=== PATIENT | female | born 1995 | race American Indian/Alaskan Native ===

== ENCOUNTER 2019-07-21 18:33 | Emergency (ER) | payer MEDICAID ==
[2019-07-21] MEDS ORDERED: Cephalexin 500 MG Cap PO ONE (18:34)
--- NOTE | 2019-07-21 23:10 | ER ---
DATE SEEN: 07/21/2019 CHIEF COMPLAINT: Pressure, pelvic. HISTORY OF PRESENT ILLNESS: A 24-year-old female who had a positive test at home. She complains of pelvic pressure, frequency of urination, and dysuria; symptoms lasting 24 hours. Denies any bleeding, neither does she have any pelvic pain as such. ALLERGIES: None. REVIEW OF SYSTEMS: No nausea, vomiting, or constipation. PHYSICAL EXAMINATION: GENERAL: She is febrile, pleasant. VITAL SIGNS: Normal. ABDOMEN: Soft and benign. LABORATORY DATA: Showed urine of white cell count 30 and rbc 10 with positive test. IMPRESSION: Urinary tract infection in early . PLAN: Cephalexin 500 mg p.o. t.i.d. for 5 days. I advised her to see her PCP to establish obstetric care. /[id number] ALDO/MISSY
== END 2019-07-21 20:04 | disposition home or self-care (01) ==
LOC: FB.ED 18:33
DX: O23.41 Unspecified infection of urinary tract in pregnancy, first trimester (principal)
CPT/HCPCS: 81001; 81025; 87086; 87088; 87186; 99284; A9270-GY

== ENCOUNTER 2019-08-05 22:28 | Emergency (ER) | payer MEDICAID ==
--- NOTE | 2019-08-05 23:53 | EDM.PDOC ---
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 History: Hematologic History: Reports: Anemia Dermatologic History: Reports: Eczema - Infectious Disease History Infectious Disease History: Reports: Chicken Pox - Past Surgical History Head Surgeries/Procedures: Reports: None Social & Family History - Family History Family Medical History: Noncontributory - Caffeine Use Caffeine Use: Reports: Coffee, Soda ED ROS GENERAL - Review of Systems Review Of Systems: See Below Constitutional: Reports: No Symptoms HEENT: Reports: No Symptoms Respiratory: Reports: No Symptoms Cardiovascular: Reports: No Symptoms Endocrine: Reports: No Symptoms GI/Abdominal: Reports: No Symptoms : Reports: No Symptoms Musculoskeletal: Reports: No Symptoms Skin: Reports: No Symptoms Neurological: Reports: No Symptoms Psychiatric: Reports: No Symptoms ED EXAM - Physical Exam Exam: See Below Exam Limited By: No Limitations General Appearance: Alert, No Apparent Distress Ears: Normal External Exam Nose: Normal Inspection Throat/Mouth: Normal Inspection Head: Atraumatic Neck: Normal Inspection Respiratory/Chest: No Respiratory Distress, Lungs Clear, Normal Breath Sounds Cardiovascular: Normal Peripheral Pulses, Regular Rate, Rhythm, No Edema, No Gallop GI/Abdominal Exam: Normal Bowel Sounds, Soft, Non-Tender Extremities: Normal Inspection, Normal Range of Motion, Non-Tender Course - Vital Signs Text/Narrative:: labs reviewed and discussed with patient and verbalized full understanding - Orders/Labs/Meds Labs: Laboratory Tests 08/05/19 08/05/19 Range/Units 22:40 22:40 Hgb 12.4 (11.5-15.5) g/dL HCG, Quant 08134 (<5) mIU/mL Departure - Departure Time of Disposition: 23:30 Disposition: Home, Self-Care 01 Condition: Good Clinical Impression: Vaginal bleeding before 22 weeks gestation - Discharge Information Instructions: Vaginal Bleeding During , First Trimester Referrals: PCP,None [Primary Care Provider] - Forms: ED Department Discharge Additional Instructions: Please read discharge instructions on vaginal bleeding Your HCG level is normal, follow up with your doctor on Thursday to recheck the HCG level No unprotected sexual intercourse x 1 month You can take tylenol 1000 mg every 8 hours as needed for pain Sepsis Event Note - Focused Exam Date Exam was Performed: 08/06/19 Time Exam was Performed: 01:13
== END 2019-08-06 | disposition home or self-care (01) ==
LOC: FB.ED 22:28
DX: O20.9 Hemorrhage in early pregnancy, unspecified (principal); Z3A.10 10 weeks gestation of pregnancy
CPT/HCPCS: 36415; 84702; 85018; 99284

== ENCOUNTER 2020-02-28 14:53 | Emergency (ER) | payer MEDICAID ==
[2020-02-28] MEDS ORDERED: Sodium Chloride 0.9% 1,000 ML IV SCH (15:15)
--- NOTE | 2020-02-28 15:50 | EDM.PDOC ---
ED HPI GENERAL MEDICAL PROBLEM - General Chief Complaint: General Stated Complaint: BLURRY VISION Time Seen by Provider: 02/28/20 15:00 Source of Information: Reports: Patient History Limitations: Reports: No Limitations - History of Present Illness INITIAL COMMENTS - FREE TEXT/NARRATIVE: Patient presented to the ED because of brief episode of blurry vision while standing and doing laundry. She also c/o nausea but no vomiting. There is no fever,cough/cold symptoms. She is at approximately 5 weeks AOG. 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: Psychiatric History: Reports: Anxiety Hematologic History: Reports: Anemia Dermatologic History: Reports: Eczema - Infectious Disease History Infectious Disease History: Reports: Chicken Pox - Past Surgical History Head Surgeries/Procedures: Reports: None Social & Family History - Family History Family Medical History: Noncontributory - Tobacco Use Tobacco Use Status *Q: Never Tobacco User - Caffeine Use Caffeine Use: Reports: Coffee, Soda ED ROS GENERAL - Review of Systems Review Of Systems: See Below Constitutional: Reports: No Symptoms HEENT: Reports: No Symptoms Respiratory: Reports: No Symptoms Cardiovascular: Reports: No Symptoms Endocrine: Reports: No Symptoms GI/Abdominal: Reports: Nausea. Denies: Vomiting : Reports: No Symptoms Musculoskeletal: Reports: No Symptoms Skin: Reports: No Symptoms Neurological: Reports: No Symptoms ED EXAM, GENERAL - Physical Exam Exam: See Below Exam Limited By: No Limitations General Appearance: No Apparent Distress Ears: Normal External Exam, Normal Canal Nose: Normal Inspection, Normal Mucosa Throat/Mouth: Normal Inspection, Normal Lips, Normal Teeth Head: Atraumatic, Normocephalic Neck: Normal Inspection, Supple, Non-Tender, Full Range of Motion Respiratory/Chest: No Respiratory Distress, Lungs Clear, Normal Breath Sounds Cardiovascular: Normal Peripheral Pulses, Regular Rate, Rhythm, No Edema, No Gallop GI/Abdominal: Normal Bowel Sounds, Non-Tender, No Organomegaly Back Exam: Normal Inspection, Full Range of Motion Course - Vital Signs Text/Narrative:: Lab results reviewed and discussed with patient NS 1 L bolus Zofran 4 mg IV x1 Last Recorded V/S: Last Vital Signs Temp 36.1 C 02/28/20 14:53 Pulse 73 02/28/20 14:53 Resp 16 02/28/20 14:53 BP 103/76 02/28/20 14:53 Pulse Ox 100 02/28/20 14:53 - Orders/Labs/Meds Orders: Active Orders 24 hr Category Date Time Status CULTURE URINE [RM] Stat Lab 02/28/20 15:38 Received Sodium Chloride 0.9% [Normal Saline] 1,000 ml Med 02/28/20 15:15 Active IV ASDIRECTED Medication Orders Sodium Chloride (Normal Saline) 1,000 mls @ 999 mls/hr IV ASDIRECTED ENEDELIA Last Admin: 02/28/20 15:45 Dose: 999 mls/hr Documented by: JENI Labs: Laboratory Tests 02/28/20 02/28/20 02/28/20 Range/Units 15:17 15:17 15:38 WBC 9.6 (4.5-12.0) X10-3/uL RBC 4.37 (3.23-5.20) x10(6)uL Hgb 12.2 (11.5-15.5) g/dL Hct 35.8 (30.0-51.3) % MCV 82.0 (80-96) fL MCH 27.9 (27.7-33.6) pg MCHC 34.0 (32.2-35.4) g/dL RDW 11.3 L (11.5-15.5) % Plt Count 220 (125-369) X10(3)uL MPV 7.9 (7.4-10.4) fL Neut % (Auto) 73.8 (46-82) % Lymph % (Auto) 19.7 (13-37) % Davis % (Auto) 4.1 (4-12) % Eos % (Auto) 2 (1.0-5.0) % Baso % (Auto) 0 (0-2) % Neut # (Auto) 7.1 (1.6-8.3) # Lymph # (Auto) 1.9 (0.6-5.0) # Davis # (Auto) 0.4 (0.0-1.3) # Eos # (Auto) 0.2 (0.0-0.8) # Baso # (Auto) 0.0 (0.0-0.2) # Sodium 138 (135-145) mmol/L Potassium 3.5 (3.5-5.3) mmol/L Chloride 102 (100-110) mmol/L Carbon Dioxide 26 (21-32) mmol/L BUN 7 (7-18) mg/dL Creatinine 0.6 (0.55-1.02) mg/dL Est Cr Clr Drug Dosing 158.40 mL/min Estimated GFR (MDRD) > 60 (>60) BUN/Creatinine Ratio 11.7 (9-20) Glucose 90 (80-116) mg/dL Calcium 9.1 (8.6-10.2) mg/dL Urine Color Yellow (YELLOW) Urine Appearance Cloudy (CLEAR) Urine pH 7.0 H (5.0-6.5) Ur Specific [place] 1.005 L (1.010-1.025) Urine Protein Negative (NEGATIVE) mg/dL Urine Glucose (UA) Normal (NORMAL) mg/dL Urine Ketones Negative (NEGATIVE) mg/dL Urine Occult Blood Moderate H (NEGATIVE) Urine Nitrite Positive H (NEGATIVE) Urine Bilirubin Negative (NEGATIVE) Urine Urobilinogen Normal (NEGATIVE) mg/dL Ur Leukocyte Esterase Large H (NEGATIVE) Urine RBC 5-10 H (0-5) Urine WBC 40-50 H (0-5) Ur Squamous Epith Cells Moderate H (NS,R,O) Urine Bacteria Many H (NS) Meds: Medications Generic Name Dose Route Start Last Admin Trade Name Freq PRN Reason Stop Dose Admin Sodium Chloride 1,000 mls @ 999 mls/hr 02/28/20 15:15 02/28/20 15:45 Normal Saline IV 999 mls/hr ASDIRECTED ENEDELIA Administration Discontinued Medications Generic Name Dose Route Start Last Admin Trade Name Freq PRN Reason Stop Dose Admin Ondansetron HCl 4 mg 02/28/20 15:52 02/28/20 15:56 Zofran IVPUSH 02/28/20 15:53 4 mg ONETIME ONE Administration Departure - Departure Time of Disposition: 16:30 Disposition: Home, Self-Care 01 Condition: Good Clinical Impression: Dehydration, UTI (urinary tract infection) - Discharge Information Prescriptions: Nitrofurantoin Monohyd/M-Cryst [Macrobid 100 mg Capsule] 100 mg PO BID #10 capsule Ondansetron [Zofran ODT] 4 mg PO Q4H PRN #10 tab.dis PRN Reason: Nausea Instructions: Dehydration, Adult, [id number], and Urinary Tract Infection Referrals: PCP,None [Primary Care Provider] - Forms: ED Department Discharge Additional Instructions: Please read discharge instructions on Dehydration and UTI Increase oral fluids, drink at least 2-3 liters of water a day Zofran ODT 4 mg every 4 hours as needed for nausea Follow up with an OB doctor for your vitamins Sepsis Event Note (ED) - Evaluation Sepsis Screening Result: No Definite Risk - Focused Exam Vital Signs: Vital Signs Temp Pulse Resp BP Pulse Ox 02/28/20 14:53 36.1 C 73 16 103/76 100 - My Orders Last 24 Hours: My Active Orders 02/28/20 15:15 Sodium Chloride 0.9% [Normal Saline] 1,000 ml IV ASDIRECTED 02/28/20 15:38 CULTURE URINE [RM] Stat - Assessment/Plan Last 24 Hours: My Active Orders 02/28/20 15:15 Sodium Chloride 0.9% [Normal Saline] 1,000 ml IV ASDIRECTED 02/28/20 15:38 CULTURE URINE [RM] Stat
[2020-02-28] MEDS ORDERED: Ondansetron 4 MG/2 ML SDV IVPUSH ONE (15:52)
== END 2020-02-28 16:39 | disposition home or self-care (01) ==
LOC: FB.ED 14:53
DX: E86.0 Dehydration (principal); N39.0 Urinary tract infection, site not specified; R11.0 Nausea
CPT/HCPCS: 36415; 80048; 81001; 85025; 87086; 87088; 87186; 96374; 99284; J2405; J7030

== ENCOUNTER 2020-05-27 00:15 | Emergency (ER) | payer MEDICAID ==
[2020-05-27] MEDS ORDERED: LORazepam 2 MG/ML SDV IM STA (00:44)
--- NOTE | 2020-05-27 00:51 | EDM.PDOC ---
ED HPI GENERAL MEDICAL PROBLEM - General Chief Complaint: General Stated Complaint: "FEELS LIKE I WANT TO BITE MY TONGUE" Time Seen by Provider: 05/27/20 00:30 Source of Information: Reports: Patient History Limitations: Reports: No Limitations - History of Present Illness INITIAL COMMENTS - FREE TEXT/NARRATIVE: Patient presented to the ED because she felt like she is swallowing her tongue backwards. She also c/o dyspnea although her oxygen saturation was normal upon triage. She thinks she have anxiety but never been diagnosed. 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: Psychiatric History: Reports: Anxiety Hematologic History: Reports: Anemia Dermatologic History: Reports: Eczema - Infectious Disease History Infectious Disease History: Reports: Chicken Pox - Past Surgical History Head Surgeries/Procedures: Reports: None Social & Family History - Family History Family Medical History: No Pertinent Family History - Caffeine Use Caffeine Use: Reports: Coffee, Soda ED ROS GENERAL - Review of Systems Review Of Systems: See Below Constitutional: Reports: No Symptoms HEENT: Reports: No Symptoms Respiratory: Reports: Shortness of Breath Cardiovascular: Reports: No Symptoms Endocrine: Reports: No Symptoms GI/Abdominal: Reports: No Symptoms : Reports: No Symptoms Musculoskeletal: Reports: No Symptoms Skin: Reports: No Symptoms ED EXAM, GENERAL - Physical Exam Exam: See Below Exam Limited By: No Limitations General Appearance: Alert Ears: Normal External Exam Nose: Normal Inspection, Normal Mucosa Throat/Mouth: Normal Inspection Head: Atraumatic, Normocephalic Neck: Normal Inspection, Supple, Non-Tender, Full Range of Motion Respiratory/Chest: No Respiratory Distress, Lungs Clear, Normal Breath Sounds, No Accessory Muscle Use, Chest Non-Tender Cardiovascular: Normal Peripheral Pulses, Regular Rate, Rhythm, No Edema, No Gallop GI/Abdominal: Normal Bowel Sounds, Soft, Non-Tender, No Organomegaly, No Distention Back Exam: Normal Inspection, Full Range of Motion Extremities: Normal Inspection, Normal Range of Motion, Non-Tender Neurological: Alert, Oriented, CN II-XII Intact Psychiatric: Normal Affect, Anxious Skin Exam: Warm Course - Vital Signs Text/Narrative:: Ativan 1 mg IM x1 - Orders/Labs/Meds Meds: Medications Discontinued Medications Generic Name Dose Route Start Last Admin Trade Name Js PRN Reason Stop Dose Admin Lorazepam 1 mg 05/27/20 00:44 05/27/20 00:54 Ativan IM 05/27/20 00:45 1 mg NOW STA Administration Departure - Departure Time of Disposition: 01:30 Disposition: Home, Self-Care 01 Condition: Good Clinical Impression: Anxiety - Discharge Information Instructions: Managing Anxiety, Adult Referrals: PCP,None [Primary Care Provider] - Forms: ED Department Discharge Additional Instructions: Please read discharge instructions on anxiety Follow up with your doctor if your anxiety attack is becoming more frequent
== END 2020-05-27 01:40 | disposition home or self-care (01) ==
LOC: FB.ED 00:15
DX: F41.9 Anxiety disorder, unspecified (principal)
CPT/HCPCS: 96372; 99283; J2060

== ENCOUNTER 2020-07-03 06:17 | Emergency (ER) | payer MEDICAID ==
[2020-07-03] MEDS ORDERED: Acetaminophen Soln 650 MG/20.3 ML UD Cup PO ONE (07:15)
--- NOTE | 2020-07-03 16:27 | EDM.PDOC ---
ED HPI GENERAL MEDICAL PROBLEM - General Stated Complaint: R flower back pain Time Seen by Provider: 07/03/20 06:30 Source of Information: Reports: Patient History Limitations: Reports: No Limitations - History of Present Illness INITIAL COMMENTS - FREE TEXT/NARRATIVE: Ev is a at approximately 21 wks AOG presented to the ED because rt lower back pain. The pain is dull ache and worse with movements. there is no associated fever,chills, nausea,vomiting. 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 States she is at this time--05-27-20. Psychiatric History: Reports: Anxiety Hematologic History: Reports: Anemia Dermatologic History: Reports: Eczema - Infectious Disease History Infectious Disease History: Reports: Chicken Pox - Past Surgical History Head Surgeries/Procedures: Reports: None Social & Family History - Family History Family Medical History: No Pertinent Family History - Caffeine Use Caffeine Use: Reports: Coffee, Soda ED ROS GENERAL - Review of Systems Review Of Systems: See Below Constitutional: Reports: No Symptoms HEENT: Reports: No Symptoms Respiratory: Reports: No Symptoms Cardiovascular: Reports: No Symptoms Endocrine: Reports: No Symptoms GI/Abdominal: Reports: No Symptoms : Reports: No Symptoms Musculoskeletal: Reports: Back Pain Skin: Reports: No Symptoms Neurological: Reports: No Symptoms Psychiatric: Reports: No Symptoms ED EXAM, GENERAL - Physical Exam Exam: See Below Exam Limited By: No Limitations General Appearance: Alert, No Apparent Distress Ears: Normal External Exam, Normal Canal, Hearing Grossly Normal Nose: Normal Inspection, Normal Mucosa Throat/Mouth: Normal Inspection, Normal Lips, Normal Teeth, Normal Gums Head: Atraumatic, Normocephalic Neck: Normal Inspection, Supple, Non-Tender, Full Range of Motion Respiratory/Chest: No Respiratory Distress, Lungs Clear, Normal Breath Sounds Cardiovascular: Normal Peripheral Pulses, Regular Rate, Rhythm, No Edema GI/Abdominal: Normal Bowel Sounds, Soft, Non-Tender, No Organomegaly, No Distention, No Abnormal Bruit, No Mass Back Exam: Normal Inspection, Full Range of Motion Extremities: Normal Inspection, Normal Range of Motion, Non-Tender Neurological: Alert, Oriented, CN II-XII Intact Psychiatric: Normal Affect Skin Exam: Warm Course - Vital Signs Text/Narrative:: Tylenol 650 mg liquid po x1 Macrobid 1 po x1 - Orders/Labs/Meds Orders: Active Orders 24 hr Category Date Time Status CULTURE URINE [RM] Routine Lab 07/03/20 06:30 Received Labs: Laboratory Tests 07/03/20 Range/Units 06:30 Urine Color Yellow (YELLOW) Urine Appearance Clear (CLEAR) Urine pH 7.0 H (5.0-6.5) Ur Specific [place] 1.005 L (1.010-1.025) Urine Protein Negative (NEGATIVE) mg/dL Urine Glucose (UA) Normal (NORMAL) mg/dL Urine Ketones Negative (NEGATIVE) mg/dL Urine Occult Blood Negative (NEGATIVE) Urine Nitrite Negative (NEGATIVE) Urine Bilirubin Negative (NEGATIVE) Urine Urobilinogen Normal (NEGATIVE) mg/dL Ur Leukocyte Esterase Large H (NEGATIVE) Urine RBC 0-5 (0-5) Urine WBC 10-20 H (0-5) Ur Squamous Epith Cells Few H (NS,R,O) Urine Bacteria Few H (NS) Departure - Departure Time of Disposition: 07:15 Disposition: Home, Self-Care 01 Condition: Good Clinical Impression: UTI (urinary tract infection) - Discharge Information Referrals: PCP,None [Primary Care Provider] - Additional Instructions: please read discharge instructions on uti increase oral fluids macrobid 1 tablet twice daily for 5 days follow up as needed - My Orders Last 24 Hours: My Active Orders 07/03/20 06:30 CULTURE URINE [RM] Routine - Assessment/Plan Last 24 Hours: My Active Orders 07/03/20 06:30 CULTURE URINE [RM] Routine
== END 2020-07-03 07:20 | disposition home or self-care (01) ==
LOC: FB.ED 06:17
DX: O23.42 Unspecified infection of urinary tract in pregnancy, second trimester (principal); Z3A.21 21 weeks gestation of pregnancy
CPT/HCPCS: 81001; 87086; 87088; 87186; 99283; A9270-GY

== ENCOUNTER 2020-07-05 02:37 | Emergency (ER) | payer MEDICAID ==
--- NOTE | 2020-07-05 03:25 | EDM.PDOC ---
ED HPI GENERAL MEDICAL PROBLEM - General Stated Complaint: BACK PAIN Time Seen by Provider: 07/05/20 02:40 Source of Information: Reports: Patient History Limitations: Reports: No Limitations - History of Present Illness INITIAL COMMENTS - FREE TEXT/NARRATIVE: Patient presented to the ED because of low back pain. She is approximately 21 weeks AOG and was diagnosed with UTI 2 days ago but she is not taking her medicines as prescribed. She said she can't swallow a pill. There is no associated fever, chills but she had 1 episode of nausea and vomiting. back pain Pain Score (Numeric/FACES): 6 - Related Data Allergies Allergy/AdvReac Type Severity Reaction Status Date / Time No Known Allergies Allergy Verified 07/05/20 03:02 Home Meds: Home Meds Vit #76/Iron,Carb/Fa [Prenatabs Rx] 1 tab DAILY 07/21/19 [History] Hydrocodone/Acetaminophen [Hydrocodone-Acetamin 10-325/15] 7.5 ml PO Q4H PRN #120 solution 07/05/20 [Rx] Nitrofurantoin Monohyd/M-Cryst [Macrobid 100 mg Capsule] 100 mg PO BID #10 capsule 07/05/20 [Rx] Ondansetron [Zofran ODT] 4 mg PO Q4H PRN #7 tab.dis 07/05/20 [Rx] Sulfamethoxazole/Trimethoprim [Bactrim Ds Tablet] 1 each PO BID #10 tablet 07/05/20 [Rx] nitrofurantoin macrocrystaL [Nitrofurantoin] 100 mg PO BID 07/05/20 [History] Past Medical History HEENT History: Reports: None 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 States she is at this time--05-27-20. Psychiatric History: Reports: Anxiety Hematologic History: Reports: Anemia Dermatologic History: Reports: Eczema - Infectious Disease History Infectious Disease History: Reports: Chicken Pox - Past Surgical History Head Surgeries/Procedures: Reports: None Social & Family History - Family History Family Medical History: No Pertinent Family History - Caffeine Use Caffeine Use: Reports: Coffee, Soda ED ROS GENERAL - Review of Systems Review Of Systems: See Below Constitutional: Reports: No Symptoms HEENT: Reports: No Symptoms Respiratory: Reports: No Symptoms Cardiovascular: Reports: No Symptoms Endocrine: Reports: No Symptoms GI/Abdominal: Reports: Nausea, Vomiting : Reports: No Symptoms Musculoskeletal: Reports: Back Pain Skin: Reports: No Symptoms ED EXAM, RENAL/ - Physical Exam Exam: See Below Exam Limited By: No Limitations General Appearance: Alert, No Apparent Distress Ears: Normal External Exam, Normal Canal, Hearing Grossly Normal Nose: Normal Inspection, Normal Mucosa, No Blood Throat/Mouth: Normal Inspection, Normal Lips, Normal Teeth, Normal Gums Head: Atraumatic, Normocephalic Neck: Normal Inspection, Supple, Non-Tender, Full Range of Motion Respiratory/Chest: No Respiratory Distress, Lungs Clear, Normal Breath Sounds, No Accessory Muscle Use, Chest Non-Tender Cardiovascular: Normal Peripheral Pulses, Regular Rate, Rhythm, No Edema, No Gallop, No JVD, No Murmur, No Rub GI/Abdominal: Normal Bowel Sounds, Other Back Exam: Normal Inspection, Full Range of Motion Extremities: Normal Inspection, Normal Range of Motion, Non-Tender, No Pedal Edema, Normal Capillary Refill Neurological: Alert, Oriented, CN II-XII Intact, Normal Cognition Psychiatric: Normal Affect, Normal Mood Course - Vital Signs Text/Narrative:: Hydrocodone liquid 15 ml po x1 Zofran ODT 4 mg PO x1 Last Recorded V/S: Last Vital Signs Temp 38.2 C H 07/05/20 02:40 Pulse 127 H 07/05/20 02:40 Resp 18 07/05/20 02:40 BP 96/50 L 07/05/20 02:40 Pulse Ox 99 07/05/20 02:40 - Orders/Labs/Meds Meds: Medications Discontinued Medications Generic Name Dose Route Start Last Admin Trade Name Js PRN Reason Stop Dose Admin Hydrocodone Bitart/Acetaminophen 15 ml 07/05/20 03:33 07/05/20 03:44 Acetaminophen/Hydrocodone 108-2.5 Mg/5 Ml Soln 15 Ml Ud Cup PO 07/05/20 03:34 15 ml NOW STA Administration Ondansetron HCl 4 mg 07/05/20 03:28 07/05/20 03:43 Ondansetron 4 Mg Tab.Dis PO 07/05/20 03:29 4 mg NOW STA Administration Departure - Departure Time of Disposition: 03:30 Disposition: Home, Self-Care 01 Condition: Good Clinical Impression: UTI (urinary tract infection) - Discharge Information Prescriptions: Sulfamethoxazole/Trimethoprim [Bactrim Ds Tablet] 1 each PO BID #10 tablet Hydrocodone/Acetaminophen [Hydrocodone-Acetamin 10-325/15] 7.5 ml PO Q4H PRN #120 solution PRN Reason: Pain Nitrofurantoin Monohyd/M-Cryst [Macrobid 100 mg Capsule] 100 mg PO BID #10 capsule Ondansetron [Zofran ODT] 4 mg PO Q4H PRN #7 tab.dis PRN Reason: Nausea Instructions: Urinary Tract Infection, Adult, [id number] Referrals: PCP,None [Primary Care Provider] - Forms: ED Department Discharge Additional Instructions: Please read discharge instructions on UTI Increase oral fluids Zofran ODT 4 mg every 4 hours as needed for nausea Take macrobid 100 mg twice daily (not once daily) for 5 days Bactrim DS twice daily for 5 days Hydrocodone liquid 10mg/325/15 ml, take 7.5 ml every 4-6 hours as needed for pain Keep your appointment to see your OB tomorrow Sepsis Event Note (ED) - Evaluation Sepsis Screening Result: Possible Sepsis Risk - Focused Exam Vital Signs: Vital Signs Temp Pulse Resp BP Pulse Ox 07/05/20 02:40 38.2 C H 127 H 18 96/50 L 99
[2020-07-05] MEDS ORDERED: Ondansetron 4 MG Tab.DIS PO STA (03:28)
[2020-07-05] MEDS ORDERED: Acetaminophen/HYDROcodone 108-2.5 MG/5 ML Soln 15 ML UD Cup PO STA (03:33)
== END 2020-07-05 04:00 | disposition home or self-care (01) ==
LOC: FB.ED 02:37
DX: O23.42 Unspecified infection of urinary tract in pregnancy, second trimester (principal); Z3A.21 21 weeks gestation of pregnancy
CPT/HCPCS: 99283; A9270

== ENCOUNTER 2021-02-23 11:11 | Emergency (ER) | payer MEDICAID ==
--- NOTE | 2021-02-23 12:21 | EDM.PDOC ---
ED HPI GENERAL MEDICAL PROBLEM - General Stated Complaint: L. EAR PAIN Time Seen by Provider: 02/23/21 11:40 Source of Information: Reports: Patient History Limitations: Reports: No Limitations - History of Present Illness INITIAL COMMENTS - FREE TEXT/NARRATIVE: pt c/o congestion fever , joint aches and left ear pressure since 2-3 days, no other associated sx and she is doing well otherwise. her fiance is also here with similar sx. - Related Data Allergies Allergy/AdvReac Type Severity Reaction Status Date / Time No Known Allergies Allergy Verified 02/23/21 11:41 Home Meds: Home Meds Vit #76/Iron,Carb/Fa [Prenatabs Rx] 1 tab DAILY 07/21/19 [History] Hydrocodone/Acetaminophen [Hydrocodone-Acetamin 10-325/15] 7.5 ml PO Q4H PRN #120 solution 07/05/20 [Rx] Nitrofurantoin Monohyd/M-Cryst [Macrobid 100 mg Capsule] 100 mg PO BID #10 capsule 07/05/20 [Rx] Ondansetron [Zofran ODT] 4 mg PO Q4H PRN #7 tab.dis 07/05/20 [Rx] Sulfamethoxazole/Trimethoprim [Bactrim Ds Tablet] 1 each PO BID #10 tablet 07/05/20 [Rx] nitrofurantoin macrocrystaL [Nitrofurantoin] 100 mg PO BID 07/05/20 [History] Past Medical History HEENT History: Reports: None HALL 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 States she is at this time--[birth year]. Psychiatric History: Reports: Anxiety Hematologic History: Reports: Anemia Dermatologic History: Reports: Eczema - Infectious Disease History Infectious Disease History: Reports: Chicken Pox - Past Surgical History Head Surgeries/Procedures: Reports: None Social & Family History - Family History Family Medical History: No Pertinent Family History - Caffeine Use Caffeine Use: Reports: Coffee, Soda ED ROS GENERAL - Review of Systems Review Of Systems: See Below Constitutional: Reports: Fever, Chills, Fatigue HEENT: Reports: Ear Pain, Rhinitis. Denies: Sinus Problem, Throat Pain Respiratory: Reports: No Symptoms Cardiovascular: Reports: No Symptoms Endocrine: Reports: No Symptoms GI/Abdominal: Reports: No Symptoms : Reports: No Symptoms Musculoskeletal: Reports: No Symptoms Skin: Reports: No Symptoms Neurological: Reports: No Symptoms ED EXAM, GENERAL - Physical Exam Exam: See Below Exam Limited By: No Limitations General Appearance: Alert, No Apparent Distress Eye Exam: Bilateral Eye: Normal Inspection Ears: Other (left ear has ruptured TM, right ear has ME effusion no eruthema us pulging or dullness ) Nose: Normal Inspection, Normal Mucosa Throat/Mouth: Normal Inspection, Normal Oropharynx Head: Atraumatic, Normocephalic Neck: Normal Inspection, Supple, Non-Tender Respiratory/Chest: No Respiratory Distress, Lungs Clear, Normal Breath Sounds Cardiovascular: Normal Peripheral Pulses, Regular Rate, Rhythm GI/Abdominal: Normal Bowel Sounds, Soft Extremities: Normal Inspection Neurological: Alert, Oriented, CN II-XII Intact, Normal Reflexes, No Motor /Sensory Deficits Course - Vital Signs Text/Narrative:: pt is covid positive with mild resp and consitiutional sxs, supportive mng was recommended along with antihistamines for left ear effusion , pt to follow with PCP if needed. 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 Last Recorded V/S: Last Vital Signs Temp 38.3 C H 02/23/21 11:11 Pulse 107 H 02/23/21 11:11 Resp 18 02/23/21 11:11 BP 102/64 02/23/21 11:11 Pulse Ox 98 02/23/21 11:11 - Orders/Labs/Meds Labs: Laboratory Tests 02/23/21 Range/Units 11:50 SARS-CoV-2 RNA ([facility]) Positive H (NEGATIVE) Departure - Departure Time of Disposition: 13:34 Disposition: Home, Self-Care 01 Clinical Impression: Viral illness, COVID - Discharge Information Referrals: PCP,None [Primary Care Provider] - Sepsis Event Note (ED) - Focused Exam Vital Signs: Vital Signs Temp Pulse Resp BP Pulse Ox 02/23/21 11:11 38.3 C H 107 H 18 102/64 98
== END 2021-02-23 14:00 | disposition home or self-care (01) ==
LOC: FB.ED 11:11
DX: U07.1 COVID-19 (principal)
CPT/HCPCS: 99283; U0002

== ENCOUNTER 2021-05-12 22:42 | Emergency (ER) | payer MEDICAID ==
[2021-05-12] MEDS ORDERED: Ketorolac 30 MG/ML SDV IM ONE (22:57)
== END 2021-05-12 23:40 | disposition home or self-care (01) ==
LOC: FB.ED 22:42
DX: R51.9 Headache, unspecified (principal); Z86.16 Personal history of COVID-19
CPT/HCPCS: 96372; 99283; J1885

== ENCOUNTER 2022-08-16 21:56 | Emergency (ER) | payer MEDICAID ==
[2022-08-16] MEDS ORDERED: Meclizine 25 MG Tab PO ONE (21:57)
== END 2022-08-16 22:37 | disposition home or self-care (01) ==
LOC: FB.ED 21:56
DX: H81.10 Benign paroxysmal vertigo, unspecified ear (principal); Z86.16 Personal history of COVID-19
CPT/HCPCS: 99283; A9270; 99282

== ENCOUNTER 2022-11-30 16:42 | Emergency (ER) | payer MEDICAID ==
[2022-11-30 17:44] LABS: BILIRUBIN,URINE NEGATIVE (NEGATIVE); GLUCOSE,URINE NORMAL (NORMAL); KETONES,URINE NEGATIVE (NEGATIVE); LEUKOCYTE ESTERASE,URINE LARGE (NEGATIVE); NITRITE,URINE NEGATIVE (NEGATIVE); OCCULT BLOOD,URINE MODERATE (NEGATIVE); PROTEIN,URINE NEGATIVE (NEGATIVE); UROBILINOGEN,URINE NORMAL (NEGATIVE)
[2022-11-30 17:45] LABS: APPEARANCE,URINE CLOUDY (CLEAR); BACTERIA,URINE FEW (NS); COLOR,URINE YELLOW (YELLOW); RBC,URINE 0-5 (0-5); SQUAMOUS EPITHELIAL CELLS,UR OCCASIONAL (NS,R,O); WBC,URINE >100 (0-5)
[2022-11-30] MEDS ORDERED: Ondansetron 4 MG/2 ML SDV IVPUSH ONE (17:57)
[2022-11-30] MEDS ORDERED: Ertapenem 1 GM in Sodium Chloride 0.9% 50 ML IV ONE (17:59)
[2022-11-30] MEDS ORDERED: Sodium Chloride 0.9% 1,000 ML IV ONE (18:00)
[2022-11-30] MEDS ORDERED: Ketorolac 30 MG/ML SDV IVPUSH ONE (18:02)
[2022-11-30 18:15] LABS: BASOPHILS PERCENT AUTO 0.3 % (0.2-1.5); EOSINOPHILS ABSOLUTE AUTO 0.1 x10-3/uL (0.0-0.8); EOSINOPHILS PERCENT AUTO 1.2 % (0.6-8.1); HEMATOCRIT 35.7 % (34.2-48.2); HEMOGLOBIN 11.8 g/dL (11.4-15.5); LYMPHOCYTES ABSOLUTE AUTO 0.9 x10-3/uL (1.0-4.4); LYMPHOCYTES PERCENT AUTO 8.7 % (18.4-52.1); MEAN CORPUSCULAR HEMOGLOBIN 26.3 pg (23.9-33.9); MEAN CORPUSCULAR HGB CONC 33.1 g/dL (31.9-34.8); MEAN CORPUSCULAR VOLUME 79.6 fL (76.7-100.5); MONOCYTES ABSOLUTE AUTO 0.7 x10-3/uL (0.3-1.0); MONOCYTES PERCENT AUTO 7.4 % (4.4-15.7); NEUTROPHILS ABSOLUTE AUTO 8.3 x10-3/uL (1.5-6.3); NEUTROPHILS PERCENT AUTO 82.4 % (30.8-76.2); PLATELET COUNT,PLT 208 x10(3)uL (151-488); RED BLOOD CELL COUNT 4.49 x10(6)uL (3.60-5.20); RED CELL DISTRIBUTION WIDTH 12.7 % (12.3-16.5); WHITE BLOOD CELL COUNT,WBC 10.1 x10-3/uL (3.0-10.3)
[2022-11-30 18:22] LABS: BLOOD UREA NITROGEN,BUN 9 mg/dL (7-18); BUN/CREATININE RATIO 11.3 (9-20); CALCIUM 8.9 mg/dL (8.6-10.2); CARBON DIOXIDE,CO2 28 mmol/L (21-32); CHLORIDE,CL 100 mmol/L (100-110); CREATININE 0.8 mg/dL (0.55-1.02); EST CRCL DRUG DOSING (CG) 107.41 mL/min; ESTIMATED GFR 104 mL/min (>60); GLUCOSE RANDOM 92 mg/dL (80-116); POTASSIUM,K 3.9 mmol/L (3.5-5.3); SODIUM,NA 138 mmol/L (135-145)
[2022-11-30 18:28] LABS: ALANINE AMINOTRANSFERASE,ALT 21 U/L (12-36); ALBUMIN 3.9 g/dL (3.5-5.2); ALKALINE PHOSPHATASE 99 IU/L (56-112); ASPARTATE AMNIOTRANSFERASE,AST 17 IU/L (5-25); BILIRUBIN TOTAL 0.6 mg/dL (0.1-1.3)
== END 2022-11-30 20:11 | disposition home or self-care (01) ==
LOC: FB.ED 16:42
DX: N12 Tubulo-interstitial nephritis, not specified as acute or chronic (principal); Z88.1 Allergy status to other antibiotic agents
CPT/HCPCS: 36415; 80053; 81001; 81025; 83605; 85025; 86140; 87040; 87086; 87088; 87186; 96361; 96365; 96375; 99283; 99284-25; J1335; J1885; J2405; J3490; J7030

== ENCOUNTER 2022-11-30 21:19 | Emergency (ER) | payer MEDICAID ==
[2022-11-30] MEDS ORDERED: traMADol 50 MG Tab PO ONE (21:20)
[2022-11-30] MEDS ORDERED: Ondansetron 4 MG Tab.DIS PO ONE (21:32)
[2022-11-30] MEDS: Acetaminophen/HYDROcodone 325-5 MG Tab PO ONE ×2 (22:00→22:07)
[2022-11-30] MEDS ORDERED: Ketorolac 30 MG/ML SDV IM ONE (22:59)
[2022-11-30] MEDS ORDERED: Ciprofloxacin 500 MG Tab PO ONE (22:59)
== END 2022-11-30 23:20 | disposition home or self-care (01) ==
LOC: FB.ED 21:19
DX: N10 Acute pyelonephritis (principal); Z88.1 Allergy status to other antibiotic agents; Z79.899 Other long term (current) drug therapy; Z86.16 Personal history of COVID-19
CPT/HCPCS: 96372; 99283; A9270-GY; J1885; Q0162

== ENCOUNTER 2023-04-09 15:51 | Emergency (ER) | payer MEDICAID | END 2023-04-09 18:09 | disposition home or self-care (01) | LOC: FB.ED 15:51 | DX: S90.32XA Contusion of left foot, initial encounter (principal); Z86.16 Personal history of COVID-19; Z88.8 Allergy status to other drugs, medicaments and biological substances; W20.8XXA Other cause of strike by thrown, projected or falling object, initial encounter | CPT/HCPCS: 73630-LT; 99283 ==

== ENCOUNTER 2024-04-10 22:00 | Emergency (ER) | payer OTHER, MEDICAID ==
[2024-04-10 23:13] LABS: BLOOD UREA NITROGEN,BUN 8 mg/dL (7-18); BUN/CREATININE RATIO 11.4 (9-20); CALCIUM 8.6 mg/dL (8.6-10.2); CARBON DIOXIDE,CO2 28 mmol/L (21-32); CHLORIDE,CL 105 mmol/L (100-110); CREATININE 0.7 mg/dL (0.55-1.02); ESTIMATED GFR 121 mL/min (>60); GLUCOSE RANDOM 102 mg/dL (80-116); POTASSIUM,K 3.8 mmol/L (3.5-5.3); SODIUM,NA 142 mmol/L (135-145)
[2024-04-10 23:17] LABS: BASOPHILS PERCENT AUTO 0.4 % (0.2-1.5); EOSINOPHILS ABSOLUTE AUTO 0.3 x10-3/uL (0.0-0.8); EOSINOPHILS PERCENT AUTO 3.8 % (0.6-8.1); HEMATOCRIT 37.4 % (34.2-48.2); HEMOGLOBIN 12.5 g/dL (11.4-15.5); LYMPHOCYTES ABSOLUTE AUTO 2.4 x10-3/uL (1.0-4.4); LYMPHOCYTES PERCENT AUTO 30.7 % (18.4-52.1); MEAN CORPUSCULAR HEMOGLOBIN 27.2 pg (23.9-33.9); MEAN CORPUSCULAR HGB CONC 33.4 g/dL (31.9-34.8); MEAN CORPUSCULAR VOLUME 81.4 fL (76.7-100.5); MEAN PLATELET VOLUME 8.5 fL (7.1-12.4); MONOCYTES ABSOLUTE AUTO 0.5 x10-3/uL (0.3-1.0); MONOCYTES PERCENT AUTO 5.7 % (4.4-15.7); NEUTROPHILS ABSOLUTE AUTO 4.7 x10-3/uL (1.5-6.3); NEUTROPHILS PERCENT AUTO 59.4 % (30.8-76.2); PLATELET COUNT,PLT 260 x10(3)uL (151-488); RED BLOOD CELL COUNT 4.59 x10(6)uL (3.60-5.20); RED CELL DISTRIBUTION WIDTH 12.5 % (12.3-16.5)
[2024-04-11] MEDS: Loperamide 2 MG Cap PO ONE ×2 (00:43)
== END 2024-04-11 00:03 | disposition home or self-care (01) ==
LOC: FB.ED 22:00
DX: K52.9 Noninfective gastroenteritis and colitis, unspecified (principal); Z86.16 Personal history of COVID-19
CPT/HCPCS: 36415; 80048; 85025; 99284

== ENCOUNTER 2024-09-29 22:36 | Emergency (ER) | payer MEDICAID, OTHER | END 2024-09-29 23:15 | disposition home or self-care (01) | LOC: FB.ED 22:36 | DX: R42 Dizziness and giddiness (principal); Z86.16 Personal history of COVID-19; Z88.1 Allergy status to other antibiotic agents | CPT/HCPCS: 99283 ==

== ENCOUNTER 2024-11-22 22:45 | Emergency (ER) | payer OTHER, MEDICAID ==
[2024-11-22 23:37] LABS: GLUCOSE,URINE NORMAL (NORMAL); OCCULT BLOOD,URINE LARGE (NEGATIVE)
[2024-11-22 23:45] LABS: APPEARANCE,URINE SLIGHTLY CLOUDY (CLEAR)
[2024-11-22 23:47] LABS: SQUAMOUS EPITHELIAL CELLS,UR RARE (NS,R,O)
== END 2024-11-23 01:31 | disposition home or self-care (01) ==
LOC: FB.ED 22:45
DX: J06.9 Acute upper respiratory infection, unspecified (principal); N10 Acute pyelonephritis; Z88.1 Allergy status to other antibiotic agents; Z86.16 Personal history of COVID-19
CPT/HCPCS: 74176; 81001; 81025; 87086; 99284

== ENCOUNTER 2025-02-12 18:29 | Emergency (ER) | payer OTHER, MEDICAID ==
[2025-02-12 18:48] LABS: GLUCOSE,URINE NORMAL (NORMAL); OCCULT BLOOD,URINE MODERATE (NEGATIVE)
[2025-02-12 18:58] LABS: APPEARANCE,URINE CLEAR (CLEAR)
[2025-02-12 18:59] LABS: SQUAMOUS EPITHELIAL CELLS,UR OCCASIONAL (NS,R,O)
[2025-02-12 19:40] LABS: BASOPHILS ABSOLUTE AUTO 0.1 x10-3/uL (0.0-0.1); BASOPHILS PERCENT AUTO 0.7 % (0.2-1.5); EOSINOPHILS ABSOLUTE AUTO 0.4 x10-3/uL (0.0-0.8); EOSINOPHILS PERCENT AUTO 4.1 % (0.6-8.1); LYMPHOCYTES ABSOLUTE AUTO 2.0 x10-3/uL (1.0-4.4); LYMPHOCYTES PERCENT AUTO 20.7 % (18.4-52.1); MEAN PLATELET VOLUME 8.1 fL (7.1-12.4); MONOCYTES ABSOLUTE AUTO 0.5 x10-3/uL (0.3-1.0); MONOCYTES PERCENT AUTO 5.0 % (4.4-15.7); NEUTROPHILS ABSOLUTE AUTO 6.7 x10-3/uL (1.5-6.3); NEUTROPHILS PERCENT AUTO 69.5 % (30.8-76.2); PLATELET COUNT,PLT 263 x10(3)uL (151-488); RED BLOOD CELL COUNT 4.76 x10(6)uL (3.60-5.20); RED CELL DISTRIBUTION WIDTH 12.7 % (12.3-16.5); WHITE BLOOD CELL COUNT,WBC 9.6 x10-3/uL (3.0-10.3)
[2025-02-12 19:47] LABS: BLOOD UREA NITROGEN,BUN 8 mg/dL (7-18); CARBON DIOXIDE,CO2 31 mmol/L (21-32); CHLORIDE,CL 102 mmol/L (100-110); CREATININE 0.8 mg/dL (0.55-1.02); EST CRCL DRUG DOSING (CG) 108.44 mL/min; ESTIMATED GFR 102 mL/min (>60); GLUCOSE RANDOM 99 mg/dL (80-116); POTASSIUM,K 3.8 mmol/L (3.5-5.3); SODIUM,NA 138 mmol/L (135-145)
[2025-02-12 19:53] LABS: A/G RATIO 1.0; ALANINE AMINOTRANSFERASE,ALT 52 U/L (12-36); ASPARTATE AMNIOTRANSFERASE,AST 31 IU/L (5-25); BILIRUBIN TOTAL 0.3 mg/dL (0.1-1.3); PROTEIN TOTAL,TP 8.0 g/dL (6.0-8.0)
== END 2025-02-12 20:20 | disposition home or self-care (01) ==
LOC: FB.ED 18:29
DX: R10.13 Epigastric pain (principal); R10.12 Left upper quadrant pain; R10.24 Suprapubic pain; R79.89 Other specified abnormal findings of blood chemistry; Z88.1 Allergy status to other antibiotic agents; Z86.16 Personal history of COVID-19
CPT/HCPCS: 36415; 80053; 81001; 81025; 83690; 83735; 85025; 86140; 99284